=== PATIENT | male | born 1980 | race Caucasian/White ===

== ENCOUNTER 2020-11-07 12:22 | Inpatient (IN) | payer OTHER ==
[2020-11-07] VITALS (38 sets, daily range): BP systolic 80–115; BP diastolic 43–70
[~2020-11-07] VITALS: Ht 182.9 cm; Wt 99.8 kg
--- NOTE | 2020-11-07 12:22 | NUR ---
PT BIBRA FROM HOME C/O SOB FOR 2 WEEKS. PT IS AAOX3, NOTED RESPIRATORY DISTRESS, HOOKED TO O2 VIA NON RB AT 15LPM AND WIRELESS CONSULTANT, KEPT RESTED AND COMFORTABLE. WILL CONTINUE TO MONITOR.
--- NOTE | 2020-11-07 12:41 | NUR ---
RT AT BEDSIDE FOR ABG.
--- NOTE | 2020-11-07 12:45 | NUR ---
BLOOD DRAW AND SENT TO LAB.
--- NOTE | 2020-11-07 12:50 | NUR ---
MANAGER AGRICULTURE AT BEDSIDE FOR XRAY.
[2020-11-07 12:59] LABS: BASOPHILS # (AUTO) 0.1 /CMM (0.0-0.2); BASOPHILS % (AUTO) 0.3 % (0.0-2.0); EOSINOPHILS % (AUTO) 3.8 % (0.0-6.0); HEMATOCRIT 38 % (39-51); HEMOGLOBIN 12.1 g/dL (13.5-17.5); LYMPHOCYTES # (AUTO) 1.4 /CMM (0.8-4.8); LYMPHOCYTES % (AUTO) 4.4 % (20.0-44.0); MEAN CORPUSCULAR HGB CONC 32 g/dl (31.0-36.0); MEAN CORPUSCULAR VOLUME 107 fL (80-96); MONOCYTES # (AUTO) 0.3 /CMM (0.1-1.30); MONOCYTES % (AUTO) 0.8 % (2.0-12.0); NEUTROPHILS # (AUTO) 28.8 /CMM (1.8-8.9); NEUTROPHILS % (AUTO) 90.7 % (43.0-81.0); PLATELET COUNT (AUTO) 236 /CMM (150-450); RED BLOOD CELL COUNT(AUTO) 3.53 MIL/uL (4.5-6.0)
[2020-11-07] MEDS ORDERED: IV NS 0.9% 1,000 ML BAG IV ONE ×2 (13:00→14:00)
--- NOTE | 2020-11-07 13:00 | NUR ---
CALLED RT AT BEDSIDE FOR VENT SET UP FOR INTUBATION.
[2020-11-07] MEDS ORDERED: DEXTROSE 50%-WATER 50 ML DISP.SYRIN ONE (13:01)
[2020-11-07 13:02] LABS: WHITE BLOOD COUNT (AUTO) 31.8 K/uL (4.3-11.0)
--- NOTE | 2020-11-07 13:02 | NUR ---
LAB CALLED WBC 31.8
--- NOTE | 2020-11-07 13:03 | NUR ---
D50 IVP GIVEN ORDERED BY .
--- NOTE | 2020-11-07 13:11 | NUR ---
ETOMIDATE 20 MG IVP AND ROCURONIUM 90MG IVP ORDERED BY .
--- NOTE | 2020-11-07 13:12 | NUR ---
INTUBATION DONE BY . ET SIZE 7.5 AND 23CM AT THE LIP. EQUAL BILATERAL BREATH SOUNDS.
[2020-11-07 13:17] LABS: ALANINE AMINOTRANSFERASE 313 U/L (12-78); ALCOHOL, BLOOD < 3 mg/dL (0-0); ALKALINE PHOSPHATASE 279 U/L (46-116); ASPARTATE AMINOTRANSFERASE 805 U/L (15-37); BILIRUBIN,DIRECT 0.6 mg/dL (0.0-0.2); BILIRUBIN,TOTAL 0.8 mg/dL (0.2-1.0); CALCIUM, SERUM 8.1 mg/dL (8.5-10.1); CHLORIDE 82 mmol/L (98-107); CREATININE 4.9 mg/dL (0.6-1.3); SERUM AMMONIA < 10 umol/L (11-32); UREA NITROGEN, BLOOD 30 mg/dL (7-18)
[2020-11-07 13:18] LABS: ACETAMINOPHEN < 2 ug/ml (10-30); GLUCOSE 50 mg/dL (74-106); SODIUM SERUM 120 mmol/L (136-145)
[2020-11-07 13:19] LABS: ALBUMIN 1.2 g/dL (3.4-5.0); CARBON DIOXIDE 8 mmol/L (21-32)
[2020-11-07] MEDS ORDERED: PROPOFOL 100 ML ONE (13:21)
[2020-11-07] MEDS ORDERED: VANCOMYCIN 1 GM in IV D5W 250 ML IV ONE (13:30)
[2020-11-07] MEDS ORDERED: PIPERACILLIN /TAZOBACTAM 3.375 G in IV D5W 50 ML IV ONE (13:30)
--- NOTE | 2020-11-07 13:30 | NUR ---
PROPOFOL DRIP STARTED TITRATE TO EFFECT ORDERED BY
--- NOTE | 2020-11-07 13:30 | NUR ---
[facility] CALLED TAX TECHNICIAN PAGED.
--- NOTE | 2020-11-07 13:41 | NUR ---
PT WHEELED TO CT SCAN VIA ACLS PROTOCOL.
[2020-11-07] MEDS ORDERED: ETOMIDATE 2 MG/ML VIAL IV ONE (14:00)
[2020-11-07] MEDS ORDERED: ROCURONIUM BROMIDE 100 MG/10 ML VIAL IV ONE (14:00)
[2020-11-07] MEDS ORDERED: PROPOFOL 100 ML IV PRN ×2 (14:00→16:00)
--- NOTE | 2020-11-07 14:10 | NUR ---
room [id number]
--- NOTE | 2020-11-07 14:16 | NUR ---
CALLED ICU FOR REPORT RN NOT AVAILABLE. WILL CALL BACK AFTER 10 MINS PER UNIT SEC.
[2020-11-07 14:28] LABS: ABG BASE EXCESS -19.6 mmol/L; ABG OXYGEN SATURATION 99.3 % (92.0-98.5); ABG PCO2 36.2 mmHg (35.0-45.0); ABG PH 7.054 (7.350-7.450); ABG PO2 337.9 mmHg (75.0-100.0); AaDO2 338.9 mmHg; COHb 0.3 % (0.5-1.5); MetHb 0.6 % (0.0-1.5); O2Hb 98.4 % (94.0-97.0); SITE, ABG Right Radial; VENT MODE, BG AC 22 500 +5 100%
[2020-11-07] MEDS ORDERED: DEXTROSE 50%-WATER 50 ML DISP.SYRIN IVP ONE (14:30)
--- NOTE | 2020-11-07 14:35 | NUR ---
CALLED HOUSE SUP FOR PICC
--- NOTE | 2020-11-07 14:37 | NUR ---
REPORT GIVEN TO YANIRA HAYES OF ICU FOR SETH.
--- NOTE | 2020-11-07 15:00 | NUR ---
ICU/RN PT ADMITTED FROM ER.INTUBATED ON THE VENT ,AC MODE,FIO2-100%.SAT O2-100%.SEDATED ON DIPRIVAN . F/C IN PLACE WITH MINIMAL AMOUNT OF URINE.SKIN INTACT.PALE ,MOTTLED AND DIAPHORETIC. AFEBRILE.ST-120 BPM ON MONITOR.LOW BP .LABS REVIEW.MD AWARE. OG TUBE PLACED AND SUCTIONING WITH GREEN GASTRIC SECRETION. PICC LINE ORDERED.
[2020-11-07 15:24] LABS: BAND % (MANUAL) 13 % (0.0-5.0); LYMPHOCYTES % (MANUAL) 7 % (16-48); MONOCYTES % (MANUAL) 1 % (0-11.0); MYELOCYTES % 6 % (0-0); NEUTROPHILS % (MANUAL) 73 (42-76)
[2020-11-07 16:23] LABS: BILIRUBIN,URINE SMALL (NEGATIVE); COLOR,URINE YELLOW (YELLOW); LEUKOCYTE ESTERASE ,URINE NEGATIVE (NEGATIVE); NITRITE, URINE NEGATIVE (NEGATIVE); PROTEIN,URINE >=300 mg/dl (NEGATIVE); UGLUCOSE NEGATIVE (NEGATIVE)
[2020-11-07] MEDS ORDERED: IV NS 0.9% 500 ML IV ONE (16:30)
[2020-11-07 16:39] LABS: RBC,URINE 21-50 /HPF (0-2)
[2020-11-07 16:40] LABS: BACTERIA,URINE 1+ /HPF (None Seen); SQUAMOUS EPITHELIAL CELL,UR 0-2 /HPF (None Seen); URINE AMORPHOUS URATE Moderate /HPF (None Seen)
[2020-11-07] MEDS: Sodium Bicarbonate 100 MEQ in IV D5/0.45 NACL 1,000 ML IV PRN (16:54)
[2020-11-07] MEDS: PHENYLEPHRINE 50 MG in IV NS 0.9% 245 ML IV PRN ×2 (16:54→22:26)
[2020-11-07] MEDS: PANTOPRAZOLE 40 MG VIAL IV SCH (17:25)
[2020-11-07] MEDS: IV NS 0.9% 500 ML IV PRN (17:26)
[2020-11-07] MEDS: Folic acid 1 MG in IV D5W 50 ML IV SCH (17:47)
[2020-11-07] MEDS: Thiamine 100 MG in IV D5W 50 ML IV SCH (17:47)
[2020-11-07] MEDS ORDERED: PIPERACILLIN /TAZOBACTAM 2.25 G in IV D5W 50 ML IV SCH (18:00)
[2020-11-07] MEDS ORDERED: VANCOMYCIN HCL 0.75 GM in IV D5W 250 ML IV ONE (18:00)
--- NOTE | 2020-11-07 18:00 | NUR ---
ICU/RN PT IS ON NORSYNEPHRINE NOW.SEDATED ON DIPRIVAN .PICC LINE INSERTED.ALL MEDS ARE GIVEN ORDERED.WAITING FOR THE CT ULTRASOUND GUIDED LIVER BIOPSY.NO URINE OUTPUT.MD AWARE.
--- NOTE | 2020-11-07 19:10 | NUR ---
RECEIVED PT ON BED INTUBATED WITH ETT 7.5/23CM VENT SETTING PER MD ORDER FIO2 80% WITH SPO2 100% PT IS ON PROPOFOL 35MCG/KG/MIN BUT STILL MOVING AND RR AT 39 BPM WILL TITRATE UP TO REACH SEDATION GOAL, TELE MONITOR READS SINUS TACHY 110'S PT HAVE KHANG PICC LINE PATENT AND FLUSHED WITH ONGOING ASHLEY @ 1MCG/KG/MIN AND D5 1/2 NS +100MEQ HCO3 @ 100ML/HR INFUSING WELL, PT ALSO HAVE LAC#18 AND RAC#18 PATENT AND FLUSHED, HAVE BILATERAL WRIST RESTRAINTS TO PREVENT SELF EXTUBATION CIRCULATION WILL CHECKED REGULARLY, BED ON LOWEST POSITION AND LOCKED SIDE RAILS UP X2 CALL LIGHT
--- NOTE | 2020-11-07 19:40 | NUR ---
RADIOLOGY CALL AND INFORMED US THAT THE DR WHO WILL DO THE CT GUIDED LIVER ABSCESS ASPIRATION IS ON HIS WAY, BRING PT TO THE CT SCAN ROOM VIA ACLS PROTOCOL WITH RT AND RN AT BEDSIDE, CONSENT FOR THE PROCEDURE ALSO SECURED, PT TOLERATED THE TRANSPORTED WILL CONT TO MONITOR
[2020-11-07] MEDS: PROPOFOL 100 ML IV PRN (20:30)
[2020-11-07] MEDS: PIPERACILLIN /TAZOBACTAM 2.25 G in IV D5W 50 ML IV SCH (20:56)
--- NOTE | 2020-11-07 20:59 | NUR ---
RT pt transported to ct and back for procedure. pt transported with ambu bag and vent. pt placed on vent with current settings. pt monitored and no complications during procedure. pt returned to room and placed back on vent. vent plugged in to red outlet. sat 100%. will continue to monitor pt.
--- NOTE | 2020-11-07 21:11 | NUR ---
RT pt received on mechanical vent with current settings. orally intubated, ett size 7.5 23@lip. vent plugged in to red outlet. ambu bag at [facility]. minimal secretions suctioned via ett. o2 titrated from 80% to 40%. pt tolerating well. sat 100%. will continue to monitor.
--- NOTE | 2020-11-07 22:00 | NUR ---
STARTED FPP TRANSFUSION WITH LATEST V/S 94/59 HR 103 RR 26 TEMP 98.5 WITH SPO2 99% NO SIGN OF SOB OF DISTRESS WILL CONT TO MONITOR
--- NOTE | 2020-11-07 22:18 | NUR ---
FFP TRANSFUSION STILL ONGOING NO SIGN OF DISTRESS NO SIGN OF TRANSFUSION REACTION NOTED V/S CHECKED AND RECORDED WILL CONT TO MONITOR
--- NOTE | 2020-11-07 23:00 | NUR ---
1ST UNIT OF FPP TRANSFUSION COMPLETED, NO SIGN OF RESPIRATORY DISTRESS AND TRANSFUSION REACTION NOTED V/S CHECKED AND RECORDED WILL CONT TO MONITOR THE PT, WILL TRANSFUSION THE SECOND UNIT ONCE AVAILABLE
[2020-11-08] VITALS (96 sets, daily range): BP systolic 71–132; BP diastolic 38–87
--- NOTE | 2020-11-08 00:15 | NUR ---
2ND UNIT OF FPP TRANSFUSED NO SIGN OF RESPIRATORY DISTRESS, NO TRANSFUSION REACTION NOTED V/S CHECKED AND RECORDED WILL CONT TO MONITOR
[2020-11-08] MEDS: PROPOFOL 100 ML IV PRN ×11 (00:31→23:41)
[2020-11-08] MEDS: PIPERACILLIN /TAZOBACTAM 2.25 G in IV D5W 50 ML IV SCH ×4 (01:42→19:59)
--- NOTE | 2020-11-08 01:56 | NUR ---
NOTIFY DR RBOERTS ABOUT THE BLOODY OUTPUT OF THE PT SANTACRUZ CATHETER WITH NO NEW ORDER
[2020-11-08] MEDS: PHENYLEPHRINE 50 MG in IV NS 0.9% 245 ML IV PRN ×2 (02:31→06:14)
[2020-11-08] MEDS: Sodium Bicarbonate 100 MEQ in IV D5/0.45 NACL 1,000 ML IV PRN (03:59)
[2020-11-08 04:42] LABS: BASOPHILS % (AUTO) 0.2 % (0.0-2.0); EOSINOPHILS % (AUTO) 3.6 % (0.0-6.0); HEMATOCRIT 31 % (39-51); HEMOGLOBIN 10.4 g/dL (13.5-17.5); LYMPHOCYTES # (AUTO) 1.1 /CMM (0.8-4.8); LYMPHOCYTES % (AUTO) 4.2 % (20.0-44.0); MEAN CORPUSCULAR HGB CONC 33 g/dl (31.0-36.0); MEAN CORPUSCULAR VOLUME 105 fL (80-96); MONOCYTES # (AUTO) 0.5 /CMM (0.1-1.30); MONOCYTES % (AUTO) 1.8 % (2.0-12.0); NEUTROPHILS # (AUTO) 23.7 /CMM (1.8-8.9); NEUTROPHILS % (AUTO) 90.2 % (43.0-81.0); PLATELET COUNT (AUTO) 70 /CMM (150-450); RED BLOOD CELL COUNT(AUTO) 2.95 MIL/uL (4.5-6.0); WHITE BLOOD COUNT (AUTO) 26.2 K/uL (4.3-11.0)
[2020-11-08 05:05] LABS: BILIRUBIN,TOTAL 1.2 mg/dL (0.2-1.0); CREATININE 4.5 mg/dL (0.6-1.3); MAGNESIUM 2.5 mg/dL (1.8-2.4); POTASSIUM 4.6 mmol/L (3.5-5.1); TOTAL PROTEIN, SERUM 5.6 g/dL (6.4-8.2)
[2020-11-08 05:09] LABS: CALCIUM, SERUM 5.4 mg/dL (8.5-10.1)
[2020-11-08 05:10] LABS: ALBUMIN 1.1 g/dL (3.4-5.0); PHOSPHORUS 10.3 mg/dL (2.5-4.9)
--- NOTE | 2020-11-08 05:45 | NUR ---
CRITICAL LAB VALUES OF CA 5.4 PHOS 10.3 Mg 2.5 AND LOW URUNE OUTPUT REPORTED TO DR ROBERTS WITH NO NEW ORDER
[2020-11-08] MEDS ORDERED: PHENYLEPHRINE 10 MG/ML VIAL ONE (06:06)
--- NOTE | 2020-11-08 06:15 | NUR ---
INFORMED DR ROBERTS THAT PT HAVE LOW BP OF 87/54 WITH ASHLEY AT MAX DOSE OF 3 MCG/KG/MIN WITH ORDER FOR LEVOPHED TO TITRATE PER PROTOCOL NOTED AND CARRIED OUT
[2020-11-08] MEDS: NOREPINEPHRINE 8 MG in IV NS 0.9% 242 ML IV PRN ×3 (06:48→20:45)
[2020-11-08 07:53] LABS: BAND % (MANUAL) 15 % (0.0-5.0); LYMPHOCYTES % (MANUAL) 8 % (16-48); MONOCYTES % (MANUAL) 1 % (0-11.0); MYELOCYTES % 5 % (0-0); NEUTROPHILS % (MANUAL) 71 (42-76)
--- NOTE | 2020-11-08 08:00 | NUR ---
RN NOTES RECEIVED PATIENT EET /VENT SETTING 7.5/23, AC-25, TV-500, FIO2-40, PEEP 5. PATIENT TOLERATING ETT SETTING WELL, NO ACUTE RESPIRATORY DISTRESS, T-102.2 F, INFUSING LEVOPHED 0.1 MCG/KG, ASHLEY 3 MCG/KG/HR, DIPRIVAN 65MCG/KG/HR, D51/2 NS WITH 2 AMPS OF BICARB @ 100 ML/HR ON LEFT PICC LINE INTACT. HAS DRAINAGE ON RIGHT LIVER LOBE WITH BROWN DISCHARGE, SANTACRUZ HAS NO OUTPUT. OGT INTACT WITH LOW SUCTION. CALL LIGHT WITHIN TO REACH, T-102.2F. WILL MONITORING.
[2020-11-08 08:09] LABS: BILIRUBIN,TOTAL 1.5 mg/dL (0.2-1.0); CREATININE 4.2 mg/dL (0.6-1.3); POTASSIUM 4.3 mmol/L (3.5-5.1)
--- NOTE | 2020-11-08 08:10 | NUR ---
RN NOTES GET CRITICAL LABS LACTIC ACID IS 3.7 FROM LAB, NOTIFIED HOSPITALIST Dr ROBERTS, AND GET TO ORDER STAT ABG, AND NOTIFY BACK TO THE HOSPITALIST. ALSO PATIENT HAS A FEVER 102.2 F ALSO GET ORDER TYLENOL SUPPOSITORY. ORDERS TAKEN AND CARRIED OUT.
[2020-11-08] MEDS ORDERED: ACETAMINOPHEN 650 MG/SUPP.RECT RC PRN (08:30)
[2020-11-08 08:42] LABS: ABG BASE EXCESS -5.8 mmol/L; ABG OXYGEN SATURATION 96.2 % (92.0-98.5); ABG PCO2 20.2 mmHg (35.0-45.0); ABG PH 7.485 (7.350-7.450); ABG PO2 79.7 mmHg (75.0-100.0); AaDO2 182.3 mmHg; COHb 0.2 % (0.5-1.5); MetHb 0.3 % (0.0-1.5); O2Hb 95.7 % (94.0-97.0); SITE, ABG Right Radial
[2020-11-08] MEDS ORDERED: IV NS 0.9% 1,000 ML IV ONE ×2 (09:00→10:00)
--- NOTE | 2020-11-08 09:00 | NUR ---
RN NOTES GET ORDER HOSPITALIST CHANGE AC 18, RT NOTIFIED.
--- NOTE | 2020-11-08 09:07 | NUR ---
rn notes administered rectal supp. T_102.2F. and running ns iv bolus x1 vis hospitalist order.
--- NOTE | 2020-11-08 09:09 | NUR ---
RT PER DR ROBERTS, RR LOWERED TO 18 ON [facility] VENT Addendum: 11/08/20 at 0910 by BRYON ANGELA RT Amended: Links added.
[2020-11-08] MEDS ORDERED: PHENYLEPHRINE 100 MG in IV NS 0.9% 240 ML IV PRN (09:30)
[2020-11-08] MEDS: PHENYLEPHRINE 100 MG in IV NS 0.9% 240 ML IV PRN ×3 (09:38→20:46)
[2020-11-08] MEDS: IV D5/ 0.9% NACL 1,000 ML IV PRN ×2 (09:39→19:59)
[2020-11-08 10:00] LABS: CALCIUM, SERUM 4.8 mg/dL (8.5-10.1)
--- NOTE | 2020-11-08 10:11 | NUR ---
RN NOTES GET CRITICAL LAB CA 4.8, AND ALBUMIN 1. NOTIFIED Dr ROBERTS, AND GET ORDER CA GLUCONATE 1G IV X1 ORDER TAKEN AND CARRIED OUT.
[2020-11-08] MEDS ORDERED: Calcium Gluconate 0.465 MEQ/ML VIAL IV ONE (10:30)
[2020-11-08 10:48] LABS: TOTAL PROTEIN, SERUM 5.1 g/dL (6.4-8.2)
[2020-11-08] MEDS ORDERED: Calcium Gluconate 1GM/10ML 4.65 MEQ in IV D5W 50 ML IV ONE (11:00)
--- NOTE | 2020-11-08 13:23 | NUR ---
rn notes Get consent form signed for us guided thoracentesis via name Nohemi. next to the bed. patient has covid vaccination on October regarding .
--- NOTE | 2020-11-08 13:31 | NUR ---
INR 1.77 TOO HIGH FOR THORACENTESIS PER DR. TOBIAS PT NEEDS TO BE GIVEN VIT. K AND CHECK FOR NEW LABS TOMORROW. YANIRA MARTINS WAS INFORMED
[2020-11-08 13:52] LABS: POTASSIUM 4.1 mmol/L (3.5-5.1)
[2020-11-08] MEDS ORDERED: PHYTONADIONE INJ 10 MG/1 ML AMPUL SQ ONE (14:00)
--- NOTE | 2020-11-08 14:00 | NUR ---
YANIRA GRIFFIN GET CALL FROM US TECH RADIOLOGIST UNABLE TO DO US GUIDED THORACENTESIS BECAUSE OF INR LEVEL IS HIGH. NOTIFIED Dr RAPP AND GET ORDER VIT K 5 MG SQ X1 ORDER TAKEN AND CARRIED OUT.
[2020-11-08 14:30] LABS: CREATININE 4.4 mg/dL (0.6-1.3)
[2020-11-08 14:31] LABS: CALCIUM, SERUM 4.7 mg/dL (8.5-10.1)
[2020-11-08] MEDS: PANTOPRAZOLE 40 MG VIAL IV SCH (17:12)
[2020-11-08] MEDS: Folic acid 1 MG in IV D5W 50 ML IV SCH (17:43)
--- NOTE | 2020-11-08 18:04 | NUR ---
RN NOTES NOTIFIED ABG RESULT TO THE Dr WATSON WATER ENGINEER.
[2020-11-08 18:08] LABS: ABG BASE EXCESS -8.3 mmol/L; ABG OXYGEN SATURATION 97.3 % (92.0-98.5); ABG PCO2 27.9 mmHg (35.0-45.0); ABG PH 7.368 (7.350-7.450); ABG PO2 99.9 mmHg (75.0-100.0); AaDO2 153.2 mmHg; COHb 0.3 % (0.5-1.5); MetHb 0.3 % (0.0-1.5); O2Hb 96.7 % (94.0-97.0)
[2020-11-08] MEDS: Thiamine 100 MG in IV D5W 50 ML IV SCH (18:14)
--- NOTE | 2020-11-08 18:45 | NUR ---
rn notes pm care done, suction , mouth care, due medication administered. Loaiza clamped for urine collection. infusing Levophed 0.1mcg/kg/hr, d5ns at 100 ml, sarah beth 3mcg/kg/hr, Diprivan 85mcg/kg/hr on left PICC line and TKO intact. Loaiza has 50 ml of bloody output, and right lever lobe drainage 50 ml. Assist turn and reposition q 2 hr. endorsed oncoming nurse follow plan of care.
--- NOTE | 2020-11-08 19:30 | NUR ---
BUSINESS DEVELOPER RCD PT W/DX SEPSIS. PT IS SEDATED ON PROPOFOL @ 85 MCG/KG/MIN. NSR ON MONITOR.INTUBTAED 7.5 @ 23 W/VENT SETTINGS AC 18 500 40% +5. OG TUBE TO LIS WITH GREEN DRAINAGE OUTPUT. PT IS NPO. SKIN INTACT HOWEVER THERE IS MOTTLING TO HEELS, KNEES, ELBOWS AND BACK. DANIEL PICC LINE PATENT WITH BLOOD RETURN D5NS @ 100ML/HR; ASHLEY @ 3 MCG/KG/MIN, LEVO 0.1 MCG/KG/MIN. NS @ TKO VIA LAC 18 IV. DRAINAGE CATHETER NOTED ON RIGHT SIDE OF ABD INTO ABSCESS CAVITY DRAINING LIQUID BROWN OUTPUT.
[2020-11-08] MEDS: IV NS 0.9% 500 ML IV PRN (19:59)
--- NOTE | 2020-11-08 19:59 | NUR ---
RCVD PT ORALLY INTUBATED WITH ETT 7.5 SECURED @ 23 CM LIP LINE ON VENT WITH THE SETTINGS OF AC 18, VT 500, FIO2 40% AND PEEP 5. PT IS SEDATED . EQUAL BILATERAL BREATH SOUNDS AND CHEST RISE NOTED. SUCTIONED SMALL AMOUNT OF WHITE THIN SECRETIONS . VENT PLUGGED INTO RED OUTLET. VENT ALARMS SET AND AUDIBLE. WILL CONTINUE TO MONITOR T/O SHIFT.
[2020-11-08] MEDS ORDERED: FUROSEMIDE 20 MG/2 ML VIAL IV ONE (22:30)
[2020-11-09] VITALS (102 sets, daily range): BP systolic 87–125; BP diastolic 45–72
--- NOTE | 2020-11-09 | NUR ---
NOCTURNIST PHYSICIAN PT VERY SEDATED DIPRIVAN DECREASED TO 80 MCG/KG/MIN PER PROTOCOL.
[2020-11-09] MEDS: PIPERACILLIN /TAZOBACTAM 2.25 G in IV D5W 50 ML IV SCH ×4 (01:30→20:30)
--- NOTE | 2020-11-09 01:30 | NUR ---
EQUIPMENT OPERAT0R PT VERY SEDATED DIPRIVAN DECREASED TO 75 MCG/KG/MIN PER PROTOCOL.
[2020-11-09] MEDS: PHENYLEPHRINE 100 MG in IV NS 0.9% 240 ML IV PRN ×4 (01:51→20:45)
[2020-11-09] MEDS: PROPOFOL 100 ML IV PRN ×10 (01:51→22:40)
--- NOTE | 2020-11-09 03:30 | NUR ---
NUMERICAL CONTROL TOOL PROGRAMMER PT VERY SEDATED DIPRIVAN DECREASED TO 70 MCG/KG/MIN PER PROTOCOL.
[2020-11-09 04:44] LABS: BASOPHILS # (AUTO) 0.1 /CMM (0.0-0.2); BASOPHILS % (AUTO) 0.5 % (0.0-2.0); HEMATOCRIT 31 % (39-51); LYMPHOCYTES # (AUTO) 1.1 /CMM (0.8-4.8); LYMPHOCYTES % (AUTO) 5.4 % (20.0-44.0); MEAN CORPUSCULAR HGB CONC 36 g/dl (31.0-36.0); MEAN CORPUSCULAR VOLUME 105 fL (80-96); MONOCYTES # (AUTO) 0.4 /CMM (0.1-1.30); NEUTROPHILS # (AUTO) 18.5 /CMM (1.8-8.9); NEUTROPHILS % (AUTO) 91.1 % (43.0-81.0); RED BLOOD CELL COUNT(AUTO) 2.93 MIL/uL (4.5-6.0); WHITE BLOOD COUNT (AUTO) 20.3 K/uL (4.3-11.0)
[2020-11-09 04:59] LABS: PLATELET COUNT (AUTO) 33 /CMM (150-450)
--- NOTE | 2020-11-09 06:09 | NUR ---
RETORT LOAD EXPEDITER DR ROBERTS MADE AWARE OF PLATELETS 33 NO URINE OUTPUT.
[2020-11-09] MEDS: IV D5/ 0.9% NACL 1,000 ML IV PRN (06:15)
[2020-11-09 06:24] LABS: BILIRUBIN,TOTAL 2.2 mg/dL (0.2-1.0); CREATININE 5.4 mg/dL (0.6-1.3); MAGNESIUM 2.5 mg/dL (1.8-2.4); POTASSIUM 4.6 mmol/L (3.5-5.1); THYROID STIMULATING HORMONE 1.051 uIU/mL (0.358-3.74); TOTAL PROTEIN, SERUM 5.2 g/dL (6.4-8.2); URIC ACID 12.5 mg/dL (2.6-7.2)
[2020-11-09 06:28] LABS: CALCIUM, SERUM 5.2 mg/dL (8.5-10.1); PHOSPHORUS 8.4 mg/dL (2.5-4.9)
[2020-11-09 06:29] LABS: ALBUMIN 0.9 g/dL (3.4-5.0)
--- NOTE | 2020-11-09 06:30 | NUR ---
POOL TABLE OPERATOR PT VERY SEDATED DIPRIVAN DECREASED TO 65 MCG/KG/MIN PER PROTOCOL.
--- NOTE | 2020-11-09 06:45 | NUR ---
LEATHER ROLLER PT NOTED TO BE TACHYPNEIC; DIPRIVAN INCREASED TO 70 MCG/KG/MIN PER PROTOCOL.
--- NOTE | 2020-11-09 08:00 | NUR ---
RN NOTES large right pleural effusion with associated compressive atelectasis as well as fluid within the interlobar fissures. 2. Partially imaged large hypoattenuating lesion in the right lobe of the liver measures 7.3 cm. PATIENT TOLERATING ETT SETTING WELL, ABG TAKEN VIA RT, T-99.5 AXILLARY.SUCTION, MAKE PATIENT COMFORTABLE. PATIENT SEDATED DIPRIVAN 70MCG/KG/HR, LEVOPHED 0.1MCG/KG/HR, ASHLEY-3 MCG/KG/HR, D5NS @ 100 ML/HR , AND TKO ON LEFT PICC LINE INTACT. RIGHT SIDE LIVER LOBE DRAINAGE, SANTACRUZ HAS BLOODY OUTPUT. ASSIST PATIENT TURN AND REPOSTION Q 2 HR.
[2020-11-09 08:07] LABS: ABG OXYGEN SATURATION 98.4 % (92.0-98.5); ABG PCO2 28.6 mmHg (35.0-45.0); ABG PH 7.348 (7.350-7.450); ABG PO2 130.2 mmHg (75.0-100.0); AaDO2 122.1 mmHg; COHb 0.3 % (0.5-1.5); MetHb 0.6 % (0.0-1.5); O2Hb 97.5 % (94.0-97.0); SITE, ABG Right Radial
--- NOTE | 2020-11-09 09:00 | NUR ---
RN NOTES GET CALL FROM US TECH RADIOLOGIST UNABLE TO DO US GUIDED THORACENTESIS BECAUSE OF PATELLATE IS LOW. SEEN PATIENT VIA HOSPITALIST AND GEY ORDER ONE PLATELET, 2 FFP , CHECK INR, AND PATELLATE AFTER ONE HR. ORDER TAKEN AND CARRIED OUT.
[2020-11-09 09:06] LABS: BAND % (MANUAL) 8 % (0.0-5.0); LYMPHOCYTES % (MANUAL) 4 % (16-48); METAMYELOCYTES % 1 % (0-0); MONOCYTES % (MANUAL) 2 % (0-11.0); MYELOCYTES % 1 % (0-0); NEUTROPHILS % (MANUAL) 84 (42-76)
[2020-11-09] MEDS ORDERED: FUROSEMIDE 20 MG/2 ML VIAL IV ONE (09:30)
[2020-11-09] MEDS: NOREPINEPHRINE 8 MG in IV NS 0.9% 242 ML IV PRN (09:32)
--- NOTE | 2020-11-09 11:32 | NUR ---
rn notes UA specimen collected from catheter port, called lab sheepskin pickler.
--- NOTE | 2020-11-09 12:29 | NUR ---
CALLED YANIRA HUBER 4 TIMES NO ANSWER, PER CHARGE NURSE IRON NO PLASMA GIVEN TO THE PATIENT AT THIS TIME, THORACENTESIS PENDING
--- NOTE | 2020-11-09 12:45 | NUR ---
RN NOTES ADMINISTERED FFP AT THIS TIME ONE UNIT ON LEFT PICC LINE .PATIENT SEDATED ETT /VENT SETTING, T-98.7, P-88, R-23, BP 106/64, O2-100. NO ACUTE RESPIRATORY DISTRESS. WILL MONITORING.
--- NOTE | 2020-11-09 13:12 | NUR ---
RN NOTES SEEN FLEECE TIER Dr MARTÍNEZ AND GET ORDER STAT ABG, ACCORDING ON ABG RESULT MD CHANGED 1/2 NS WITH BICARB 75 MEQ, ORDER TAKEN AND CARRIED OUT.
[2020-11-09 13:15] LABS: ABG BASE EXCESS -9.3 mmol/L; ABG OXYGEN SATURATION 98.5 % (92.0-98.5); ABG PCO2 32.5 mmHg (35.0-45.0); ABG PH 7.308 (7.350-7.450); ABG PO2 134.5 mmHg (75.0-100.0); AaDO2 113.3 mmHg; COHb 0.3 % (0.5-1.5); MetHb 0.4 % (0.0-1.5); O2Hb 97.8 % (94.0-97.0); SITE, ABG Right Radial
--- NOTE | 2020-11-09 13:30 | NUR ---
RN NOTES PATIENT HAS NO ACUTE REPARATORY DISTRESS. VS TAKEN BP-111/60, P-85 R-23, T-99. INCREASED FFP INFUSION @150ML/HR WILL MONITORING.
[2020-11-09] MEDS: Sodium Bicarbonate 75 MEQ in IV 1/2NS 1000 ML 1,000 ML IV PRN (13:59)
[2020-11-09] MEDS ORDERED: VANCOMYCIN 1 GM in IV D5W 250ml IV SCH (14:00)
--- NOTE | 2020-11-09 14:50 | NUR ---
AT THIS TIME STILL NO PLATELESTS, WILL FOLLOW UP LATER
--- NOTE | 2020-11-09 15:00 | NUR ---
RN NOTES FINISHED FIRST UNITS OF FFP TRANSFUSION AT THIS TIME, VSS, T-99. P-81, BP-111/63, R-22, PATIENT TOLERATED INFUSION WELL. WILL MONITORING.
--- NOTE | 2020-11-09 15:19 | NUR ---
RN NOTES STARTED SECOND FFP INFUSION AT THIS TIME 60 ML/HR, T-97.9, P-76, R-22, BP 108/85. PATIENT HAS NO ACUTE RESPIRATORY DISTRESS. WILL MONITORING
--- NOTE | 2020-11-09 15:40 | NUR ---
RN NOTES PATIENT TOLERATING FFP INFUSION WELL, BP 106/59, P-76, R-21, -98 F, NO ACUTE RESPIRATORY DISTRESS, INCREASED INFUSION 200 ML/HR WILL MONITORING.
--- NOTE | 2020-11-09 15:51 | NUR ---
Platelet count still too low for Thoracentesis procedure to be done today. Per radiologist, will be done tomorrow morning pending higher plat count and lower INR (< 1.5)
--- NOTE | 2020-11-09 17:09 | NUR ---
rn notes finished second FFP transfusion at this time, patient stable, no acute respiratory ditress, t-99. p-75, r-21,hr-75, bp 113/65. according radiologist platelet not received yet will be given tomorrow. hospitalist Dr Yu notified. also notified lab blood bank.
[2020-11-09] MEDS: Folic acid 1 MG in IV D5W 50 ML IV SCH (17:30)
[2020-11-09] MEDS: PANTOPRAZOLE 40 MG VIAL IV SCH (17:30)
[2020-11-09] MEDS: Thiamine 100 MG in IV D5W 50 ML IV SCH (18:10)
--- NOTE | 2020-11-09 18:49 | NUR ---
RN NOTES PATIENT PM CARE DONE, SUCTION, MOUTH CARE, BSS-90/50, INFUSING ASHLEY 3 MCG/KG/HR, DIPRIVAN 75 MCG/KG/HR, 1/2 NS +BICARB 75MEQ @100 ML/HR, AND TKO @10ML/HR. ASSIST TURN AND REPOSTION Q 2 HR, RECHECKED RESTRAIN AND GOOD CIRCULATION, OGT LOW SUCTION. SANTACRUZ DRAINING BLOODY OUTPUT. LIVER DRAINAGE INTACT. NEXT TO THE BED. ENDORSED ONCOMING NURSE SETH.
--- NOTE | 2020-11-09 19:45 | NUR ---
ASSOCIATE ARTISTIC DIRECTOR LEVOPHED RESTARTED AT 0.1 MCG/KG/MIN FOR BP 89/50.
[2020-11-09] MEDS: IV NS 0.9% 500 ML IV PRN (20:45)
[2020-11-10] VITALS (95 sets, daily range): BP systolic 87–130; BP diastolic 43–102
[2020-11-10] MEDS: Sodium Bicarbonate 75 MEQ in IV 1/2NS 1000 ML 1,000 ML IV PRN (00:50)
[2020-11-10] MEDS: PROPOFOL 100 ML IV PRN ×6 (01:01→18:41)
[2020-11-10] MEDS: PIPERACILLIN /TAZOBACTAM 2.25 G in IV D5W 50 ML IV SCH ×4 (01:30→20:30)
[2020-11-10] MEDS: PHENYLEPHRINE 100 MG in IV NS 0.9% 240 ML IV PRN ×4 (01:31→19:46)
[2020-11-10] MEDS: NOREPINEPHRINE 8 MG in IV NS 0.9% 242 ML IV PRN ×2 (01:31→14:08)
[2020-11-10 04:26] LABS: BASOPHILS # (AUTO) 0.1 /CMM (0.0-0.2); BASOPHILS % (AUTO) 0.3 % (0.0-2.0); EOSINOPHILS % (AUTO) 1.5 % (0.0-6.0); HEMATOCRIT 29 % (39-51); LYMPHOCYTES # (AUTO) 1.1 /CMM (0.8-4.8); LYMPHOCYTES % (AUTO) 4.3 % (20.0-44.0); MEAN CORPUSCULAR HGB CONC 34 g/dl (31.0-36.0); MEAN CORPUSCULAR VOLUME 105 fL (80-96); MONOCYTES # (AUTO) 0.7 /CMM (0.1-1.30); MONOCYTES % (AUTO) 2.7 % (2.0-12.0); NEUTROPHILS # (AUTO) 22.3 /CMM (1.8-8.9); NEUTROPHILS % (AUTO) 91.2 % (43.0-81.0); RED BLOOD CELL COUNT(AUTO) 2.82 MIL/uL (4.5-6.0); WHITE BLOOD COUNT (AUTO) 24.4 K/uL (4.3-11.0)
[2020-11-10 04:32] LABS: PLATELET COUNT (AUTO) 24 /CMM (150-450)
[2020-11-10 04:53] LABS: BILIRUBIN,TOTAL 3.1 mg/dL (0.2-1.0); CREATININE 6.2 mg/dL (0.6-1.3); POTASSIUM 5.1 mmol/L (3.5-5.1); TOTAL PROTEIN, SERUM 5.3 g/dL (6.4-8.2)
[2020-11-10 05:07] LABS: CALCIUM, SERUM 4.9 mg/dL (8.5-10.1)
--- NOTE | 2020-11-10 07:30 | NUR ---
ICU/RN PT IS INTUBATED ON THE VENT AC MODE,FIO2-40%,SAT O2-97%. SEDATED ON DIPRIVAN.ON LEVOPHED AND NEOSYNEPHRINE DRIPS,ON BICARB DRIP,LEFT UPPER ARM PICC LINE.OG TUBE CONNECTED LOW INTERMEDIATE SUCTION WITH GREEN GASTRIC SECRETION.F/C IN PLACE WITH NO URINE OUTPUT.GENERALIZED EDEMA PRESENT.PT POST LIVER DRAINAGE ABSCESS HAS BAG WITH BROWN OUTPUT.BILATERAL WRIST RESTRAINS ON.LABS REVIEW.MD NOTIFIED.SUCTION PROVIDED.REPOSITION FOR COMFORT.
[2020-11-10 08:10] LABS: ABG BASE EXCESS -8.7 mmol/L; ABG PCO2 31.5 mmHg (35.0-45.0); ABG PH 7.328 (7.350-7.450); ABG PO2 113.6 mmHg (75.0-100.0); AaDO2 135.4 mmHg; COHb 0.3 % (0.5-1.5); MetHb 0.5 % (0.0-1.5); O2Hb 97.2 % (94.0-97.0); SITE, ABG Right Radial
--- NOTE | 2020-11-10 09:00 | NUR ---
ICU/RN DUE MEDS ARE GIVEN ORDERED. 1 UNIT OF PLATELETS ARE GIVEN ORDERED.
--- NOTE | 2020-11-10 12:00 | NUR ---
ICU/RN RIGHT LUNG THORACENTESIS DONE .1090 ML OUTPUT.PT TOLERATED PROCEDURE WELL. FLUIDS SANDED TO THE LAB.
[2020-11-10] MEDS: Sodium Bicarbonate 75 MEQ in IV 1/2NS 1000 ML 1,000 ML IV SCH ×2 (12:55→23:00)
--- NOTE | 2020-11-10 14:00 | NUR ---
ICU/RN SEDATION VACATION PROVIDED.PT OPEN HIS EYES,FOLLOWS SIMPLE COMMAND . REACTIVE ON PAIN STIMULATIONS VERY WEAK ,DOES NOT MOVES HIS EXTREMITIES. GENERALIZED EDEMA PRESENT.WAITING FOR HD CATH PLACEMENT AND HD. FAMILY NOTIFIED AND AGREE WITH TREATMENTS.CONSENTS SIGN.SUCTION PROVIDED.REPOSITION FOR COMFORT.
[2020-11-10] MEDS: Thiamine 100 MG in IV D5W 50 ML IV SCH (17:44)
[2020-11-10] MEDS: Folic acid 1 MG in IV D5W 50 ML IV SCH (17:45)
[2020-11-10] MEDS: HYDROCORTISONE SOD SUCCINATE 100 MG/2 ML VIAL IV SCH ×2 (17:53→20:27)
[2020-11-10] MEDS: PANTOPRAZOLE 40 MG VIAL IV SCH (17:53)
--- NOTE | 2020-11-10 19:30 | NUR ---
PIG MACHINE OPERATOR OPENING NOTES: Rec'd pt in bed, sedated and intubated 7.5/23cm at the lip. Tolerating vent settings well. No resp distress noted at this time. SR on tele monitor. OGT in place, connected to low intermittent suction. NPO dx. KHANG PICC in place patent and flushed w/ 1/2NS w/ 3 amps of Bicarb infusing at 100ml/hr, Levo at 0.1mcg/kg/min, Tone at 3mcg/kg/min and Diprivan at 30mcg/kg. Will titrate pressors as tolerated. Loaiza catheter in place patent and draining urine via gravity. Safety measures in place. Will continue to monitor.
--- NOTE | 2020-11-10 22:20 | NUR ---
MIDDLE SCHOOL SPORTS COACH NOTE: BP: 124/73 titrate Levo off as ordered. Will continue to monitor BP closely.
[2020-11-11] VITALS (96 sets, daily range): BP systolic 105–140; BP diastolic 56–94
[2020-11-11] MEDS: PROPOFOL 100 ML IV PRN ×4 (00:30→18:17)
[2020-11-11] MEDS: PHENYLEPHRINE 100 MG in IV NS 0.9% 240 ML IV PRN ×2 (01:41→11:54)
[2020-11-11] MEDS: PIPERACILLIN /TAZOBACTAM 2.25 G in IV D5W 50 ML IV SCH (01:48)
[2020-11-11 04:31] LABS: BILIRUBIN,DIRECT 3.4 mg/dL (0.0-0.2); BILIRUBIN,TOTAL 3.8 mg/dL (0.2-1.0); CREATININE 6.9 mg/dL (0.6-1.3); POTASSIUM 5.8 mmol/L (3.5-5.1); TOTAL PROTEIN, SERUM 5.3 g/dL (6.4-8.2)
[2020-11-11 04:59] LABS: ALBUMIN 0.9 g/dL (3.4-5.0)
[2020-11-11] MEDS: HYDROCORTISONE SOD SUCCINATE 100 MG/2 ML VIAL IV SCH ×3 (05:01→21:00)
[2020-11-11 05:02] LABS: CALCIUM, SERUM 4.7 mg/dL (8.5-10.1)
--- NOTE | 2020-11-11 06:01 | NUR ---
HEAVY EQUIPMENT ENGINE MECHANIC NOTE: Rec'd critical lab values Ca: 4.7 and Albumin 0.9. Paged chocolate production machine operator MD Dr. Garcia w/ order for nutritional follow up. Noted.
--- NOTE | 2020-11-11 07:35 | NUR ---
ICU/RN PT IS INTUBATED ON THE VENT AC MODE,FIO2-40%,SAT O2-100%.SEDATED ON DIPRIVAN.ON NEOSYNEPHRINE DRIP.AND BICARB DRIP.OG TUBE CONNECTED TO SUCTION NO OUTPUT.F/C IN PLACE WITH NO URINE OUTPUT.GENERALIZED EDEMA PRESENT.LABS REVIEW MD NOTIFIED.SUCTION PROVIDED.REPOSITION FOR COMFORT.
[2020-11-11] MEDS: CEFTRIAXONE 2 G in IV D5W 100 ML IV SCH (08:23)
[2020-11-11 08:33] LABS: ABG PCO2 29.8 mmHg (35.0-45.0); ABG PH 7.337 (7.350-7.450); ABG PO2 110.6 mmHg (75.0-100.0); AaDO2 140.3 mmHg; COHb 0.3 % (0.5-1.5); MetHb 0.2 % (0.0-1.5); O2Hb 97.5 % (94.0-97.0); PEEP,BG 5 cm H2O; SITE, ABG Right Radial; VT, ABG 500 mL
--- NOTE | 2020-11-11 08:37 | NUR ---
STAS LUCIA Addendum: 11/11/20 at 0838 by LOULOU LEVINE RT Amended: Links added.
[2020-11-11] MEDS: IV NS 0.9% 500 ML IV PRN (08:59)
[2020-11-11] MEDS ORDERED: SODIUM BICARBONATE SYR 50 MEQ/50 ML DISP.SYRIN IV ONE (09:00)
[2020-11-11] MEDS ORDERED: DEXTROSE 50%-WATER 50 ML DISP.SYRIN IVP ONE (09:00)
[2020-11-11] MEDS ORDERED: INSULIN REGULAR, HUMAN 100 UNIT/ML 10 ML VIAL IV ONE (09:00)
[2020-11-11] MEDS ORDERED: Calcium Gluconate 1GM/10ML 4.65 MEQ in IV D5W 50 ML IV ONE (09:30)
--- NOTE | 2020-11-11 09:30 | NUR ---
ICU/RN SEDATION VACATION PROVIDED.PT OPEN HIS EYES,FOLLOWS COMMAND.VERY WEAK,TACHYPNEA.DIPRIVAN RESTARTED.CONTINUE MONITORING
[2020-11-11] MEDS: Sodium Bicarbonate 75 MEQ in IV 1/2NS 1000 ML 1,000 ML IV SCH ×2 (11:47→21:00)
[2020-11-11] MEDS: METRONIDAZOLE 500MG/ NS 100ML 500 MG in PREMIX 1 EA IV SCH ×3 (11:55→23:36)
[2020-11-11] MEDS ORDERED: ALBUMIN 25% 25 GM in PREMIX 1 EA IV PRN (12:00)
--- NOTE | 2020-11-11 12:00 | NUR ---
ICU/RN NEW RIGHT FEMORAL HD CATH INSERTED ORDERED,PT TOLERATED PROCEDURE WELL,
[2020-11-11] MEDS: PROSOURCE / PROSTAT (PYXIS) 30 ML UDC GT SCH ×2 (12:08→16:50)
[2020-11-11] MEDS ORDERED: NEPRO 1,000 ML BOTTLE GT PRN (12:30)
[2020-11-11] MEDS: PANTOPRAZOLE 40 MG VIAL IV SCH (17:00)
--- NOTE | 2020-11-11 18:02 | NUR ---
ICU/RN PM CARE PROVIDED.DUE MEDS ARE GIVEN ORDERED.HEMODIALYSIS STARTED.HD NURSE AT BEDSIDE.
[2020-11-11] MEDS: Folic acid 1 MG in IV D5W 50 ML IV SCH (18:17)
[2020-11-11] MEDS: Thiamine 100 MG in IV D5W 50 ML IV SCH (18:17)
--- NOTE | 2020-11-11 19:34 | NUR ---
AIR HOSE COUPLER OPENING NOTES: Rec'd pt in bed, sedated and intubated 7.5/23cm at the lip. Tolerating vent settings well. No resp distress noted at this time. SR on tele monitor. OGT in place, w/ Nepro infusing at 20ml/hr. Tolerating well. No residuals noted. KHANG PICC in place patent and flushed w/ 1/2NS w/ 3 amps of Bicarb infusing at 100ml/hr, Tone at 1mcg/kg/min and Diprivan at 20mcg/kg. Will titrate pressors as tolerated. Right femoral HD cath in place, receiving dialysis at this time. astronomy instructor at bedside, pt tolerating well. Loaiza catheter in place patent and draining urine via gravity. Safety measures in place. Will continue to monitor. Addendum: 11/11/20 at 1952 by SUDHIR JIMENES RN Has drainage catheter on right abdomen draining brown output.
--- NOTE | 2020-11-11 19:55 | NUR ---
STAGE SETTING PAINTER APPRENTICE NOTE: Dialysis complete. 2,500ml out.
[2020-11-12] VITALS (88 sets, daily range): BP systolic 107–156; BP diastolic 39–109
[2020-11-12] MEDS: PROPOFOL 100 ML IV PRN ×6 (01:27→23:50)
--- NOTE | 2020-11-12 02:00 | NUR ---
INDUSTRIAL GARAGE SERVICER NOTE: 0130: Pt awake, fighting vent and attempting to reach for tubes. Increased Diprivan by 5mcg/kg as per protocol. 0135: Pt awake and fighting vent. Increase Diprivan per protocol. 0140: Pt awake, following commands but still fighting vent. Increase by 5mcg/kg as Diprivan per protocol. 0145: Pt awake, following commands but still fighting vent. Increase Diprivan by 5mcg/kg as per protocol. Diprivan now infusing at 40mcg/kg/min. Will continue to monitor and titrate accordingly.
--- NOTE | 2020-11-12 02:30 | NUR ---
DORMITORY COUNSELOR NOTE: Pt's BP 117/68, HR 86. Titrated Tone off. Will continue to monitor and resume if necessary.
--- NOTE | 2020-11-12 02:45 | NUR ---
WORK ADJUSTMENT INSTRUCTOR NOTE: Pt noted w/ rapid respirations in the 30s. Increased Diprivan to 45mcg/kg/min. Will continue to monitor.
[2020-11-12 04:42] LABS: BASOPHILS % (AUTO) 0.2 % (0.0-2.0); EOSINOPHILS % (AUTO) 0.1 % (0.0-6.0); HEMATOCRIT 29 % (39-51); LYMPHOCYTES # (AUTO) 1.3 /CMM (0.8-4.8); LYMPHOCYTES % (AUTO) 6.2 % (20.0-44.0); MEAN CORPUSCULAR HGB CONC 35 g/dl (31.0-36.0); MEAN CORPUSCULAR VOLUME 102 fL (80-96); MONOCYTES # (AUTO) 0.6 /CMM (0.1-1.30); MONOCYTES % (AUTO) 2.9 % (2.0-12.0); NEUTROPHILS # (AUTO) 19.6 /CMM (1.8-8.9); NEUTROPHILS % (AUTO) 90.6 % (43.0-81.0); PLATELET COUNT (AUTO) 87 /CMM (150-450); RED BLOOD CELL COUNT(AUTO) 2.83 MIL/uL (4.5-6.0); WHITE BLOOD COUNT (AUTO) 21.6 K/uL (4.3-11.0)
[2020-11-12 04:57] LABS: BILIRUBIN,TOTAL 4.3 mg/dL (0.2-1.0); CREATININE 6.2 mg/dL (0.6-1.3); POTASSIUM 4.7 mmol/L (3.5-5.1); TOTAL PROTEIN, SERUM 5.5 g/dL (6.4-8.2)
[2020-11-12] MEDS: HYDROCORTISONE SOD SUCCINATE 100 MG/2 ML VIAL IV SCH ×3 (05:19→17:40)
[2020-11-12] MEDS: METRONIDAZOLE 500MG/ NS 100ML 500 MG in PREMIX 1 EA IV SCH ×4 (05:20→23:50)
[2020-11-12 05:45] LABS: ALBUMIN 1.3 g/dL (3.4-5.0)
[2020-11-12 06:02] LABS: BAND % (MANUAL) 2 % (0.0-5.0); LYMPHOCYTES % (MANUAL) 3 % (16-48); METAMYELOCYTES % 2 % (0-0); MONOCYTES % (MANUAL) 2 % (0-11.0); MYELOCYTES % 1 % (0-0); NEUTROPHILS % (MANUAL) 90 (42-76)
--- NOTE | 2020-11-12 06:17 | NUR ---
OIL TANKER CAPTAIN NOTE: Rec'd call from Micah from lab w/ critical labs. Ca: 6.0 and Albumin: 1.3. Paged Dr. Yu, GINGERO at this time. Noted.
[2020-11-12] MEDS: Sodium Bicarbonate 75 MEQ in IV 1/2NS 1000 ML 1,000 ML IV SCH (07:39)
[2020-11-12] MEDS: CEFTRIAXONE 2 G in IV D5W 100 ML IV SCH (08:12)
[2020-11-12] MEDS: PROSOURCE / PROSTAT (PYXIS) 30 ML UDC GT SCH ×3 (08:14→17:41)
[2020-11-12] MEDS: IV D5/ 0.9% NACL 1,000 ML IV PRN ×2 (08:59→22:15)
--- NOTE | 2020-11-12 10:42 | NUR ---
RN NOTE 0715: Received patient with ETT to vent, tolerated settings, no respiratory distress noted. KHANG PICC intact, on Diprivan @ 45, Bicarb drip infusing as ordered. OGT intact, TF tolerated, no residuals. Kept HOB elevated. With RUQ drain intact, noted with brownish pus drainage. 0830: S/E by Dr. Yu, to F/U with pulmo re: extubation. 0900: S/E by Dr. Khoury, with order to turn off Diprivan and wake up patient for SIMV trial and ABG 1hr after. 0925: Patient is awake, able to answer yes/no questions. RT placed him on SIMV 4 50% +5. 1030: S/E by Nephro with order for HD today, made patient aware.
[2020-11-12 10:57] LABS: ABG BASE EXCESS -2.7 mmol/L; ABG OXYGEN SATURATION 96.9 % (92.0-98.5); ABG PCO2 31.7 mmHg (35.0-45.0); ABG PH 7.436 (7.350-7.450); ABG PO2 93.7 mmHg (75.0-100.0); COHb 0.3 % (0.5-1.5); MetHb 0.2 % (0.0-1.5); O2Hb 96.4 % (94.0-97.0); PEEP,BG 5 cm H2O; SITE, ABG Right Radial
[2020-11-12] MEDS ORDERED: IV NS 0.9% 250 ML IV PRN (13:00)
--- NOTE | 2020-11-12 16:34 | NUR ---
placed back to ac mode due to 33 respiration, 183 heart rate and 84% saturation. Addendum: 11/12/20 at 1635 by LOULOU LEVINE RT Amended: Links added.
--- NOTE | 2020-11-12 16:53 | NUR ---
RN NOTE 1630: 2 hours in HD, noted patient on SVT >180's and increased WOB. Discontinued HD by HD nurse, made Dr. Khoury and Dr. Yu aware. Placed back on AC mode and placed on sedation. After 5 min, back to ST 100's. Obtained order from Dr. Khoury SIMV tomorrow 0600 and ABG 0730.
[2020-11-12] MEDS: PANTOPRAZOLE 40 MG VIAL IV SCH (18:07)
[2020-11-12] MEDS: Folic acid 1 MG in IV D5W 50 ML IV SCH (18:24)
[2020-11-12] MEDS: Thiamine 100 MG in IV D5W 50 ML IV SCH (18:24)
--- NOTE | 2020-11-12 19:27 | NUR ---
INSPECTOR BULLET SLUGS OPENING NOTES: Rec'd pt in bed, sedated and intubated 7.5/23cm at the lip. Tolerating vent settings well. No resp distress noted at this time. SR on tele monitor. OGT in place, w/ Nepro infusing at 20ml/hr. Tolerating well. No residuals noted at this time. KHANG PICC in place patent and flushed w/ D5NS infusing at 75ml/hr and Diprivan infusing at 45mcg/kg. Right femoral HD cath in place. Drainage catheter on right abdomen w/ brown output noted. Loaiza catheter in place patent and draining urine via gravity. Safety measures in place. Will continue to monitor.
[2020-11-13] VITALS (22 sets, daily range): BP systolic 122–150; BP diastolic 74–98
[2020-11-13] MEDS: PROPOFOL 100 ML IV PRN (04:10)
[2020-11-13 04:25] LABS: BASOPHILS # (AUTO) 0.1 /CMM (0.0-0.2); BASOPHILS % (AUTO) 0.2 % (0.0-2.0); EOSINOPHILS % (AUTO) 0.1 % (0.0-6.0); HEMATOCRIT 28 % (39-51); HEMOGLOBIN 9.6 g/dL (13.5-17.5); LYMPHOCYTES # (AUTO) 1.3 /CMM (0.8-4.8); LYMPHOCYTES % (AUTO) 6.1 % (20.0-44.0); MEAN CORPUSCULAR HGB CONC 34 g/dl (31.0-36.0); MEAN CORPUSCULAR VOLUME 102 fL (80-96); MONOCYTES # (AUTO) 0.8 /CMM (0.1-1.30); MONOCYTES % (AUTO) 3.8 % (2.0-12.0); NEUTROPHILS # (AUTO) 19.5 /CMM (1.8-8.9); NEUTROPHILS % (AUTO) 89.8 % (43.0-81.0); PLATELET COUNT (AUTO) 127 /CMM (150-450); RED BLOOD CELL COUNT(AUTO) 2.78 MIL/uL (4.5-6.0); WHITE BLOOD COUNT (AUTO) 21.7 K/uL (4.3-11.0)
[2020-11-13 04:57] LABS: BILIRUBIN,TOTAL 2.4 mg/dL (0.2-1.0); CALCIUM, SERUM 6.9 mg/dL (8.5-10.1); CREATININE 5.5 mg/dL (0.6-1.3); POTASSIUM 4.4 mmol/L (3.5-5.1)
[2020-11-13 04:58] LABS: TOTAL PROTEIN, SERUM 5.4 g/dL (6.4-8.2)
[2020-11-13] MEDS: METRONIDAZOLE 500MG/ NS 100ML 500 MG in PREMIX 1 EA IV SCH ×3 (06:00→17:17)
--- NOTE | 2020-11-13 06:00 | NUR ---
VENT SETTINGS CHANGED TO SIMV 4, PS 15 [address] PEEP [address] REA HORN. YANIRA PEGUERO NOTIFIED. NO RESPIRATORY DISTRESS NOTED AT THIS TIME.
[2020-11-13 06:02] LABS: ALBUMIN 1.2 g/dL (3.4-5.0); PHOSPHORUS 8.4 mg/dL (2.5-4.9)
--- NOTE | 2020-11-13 06:19 | NUR ---
CREDENTIALING COORDINATOR NOTE: [id number]: Weaned pt off Diprivan drip per protocol. Tolerated well. Pt A&O, following commands. 600: Pt placed on SIMV mode by RT. Settings SIMV:4, PEEP:5, PSV: [address] Khoury's orders. Pt tolerated well. No resp distress noted at this time. ABG for 07, RT aware. Will continue to monitor.
--- NOTE | 2020-11-13 07:20 | NUR ---
RN OPENING NOTES RECEIVED PT AWAKE. SEDATION OFF. MECH VENT ON SIMV MODE. NO SOB OR ANY RESPIRATORY DISTRESS. SR ON TELE MONITOR. OGT IN PLACE. SANTACRUZ CATH IN PLACE. IV ACCESS INTACT, PATENT AND FLUSHED. RUNNING D5NS @75ML/HR, INFUSING WELL. SAFETY MEASURES IN PLACE. BED LOCKED AND IN LOWEST POSITION WITH SIDE RAILS UP X3. WILL CONTINUE TO MONITOR.
[2020-11-13] MEDS ORDERED: DC PROPOFOL WHEN EXTUBATED XX PRN (08:00)
[2020-11-13 08:05] LABS: ABG BASE EXCESS -0.3 mmol/L; ABG OXYGEN SATURATION 97.2 % (92.0-98.5); ABG PCO2 37.5 mmHg (35.0-45.0); ABG PH 7.422 (7.350-7.450); AaDO2 141.1 mmHg; COHb 0.3 % (0.5-1.5); MetHb 0.6 % (0.0-1.5); O2Hb 96.3 % (94.0-97.0); PEEP,BG 5 cm H2O; SITE, ABG Right Radial; VENT MODE, BG SIMV 40% PS15; VT, ABG 500 mL
[2020-11-13] MEDS: CEFTRIAXONE 2 G in IV D5W 100 ML IV SCH (08:26)
[2020-11-13] MEDS: PROSOURCE / PROSTAT (PYXIS) 30 ML UDC GT SCH ×2 (08:26→13:00)
[2020-11-13] MEDS: HYDROCORTISONE SOD SUCCINATE 100 MG/2 ML VIAL IV SCH ×2 (08:26→17:17)
[2020-11-13] MEDS ORDERED: ERYTHROMYCIN BASE OPHTH 3.5 GM TUBE EACHEYE SCH (09:00)
--- NOTE | 2020-11-13 09:17 | NUR ---
RT Received pt on SIMV mode. Patient extubated per MD orders post ABG. RN bedside during extubation. Placed pt on 4 LPM via nasal cannula. No SOB noted. Will continue to monitor
--- NOTE | 2020-11-13 09:37 | NUR ---
RN NOTES BROUGHT TO CT PER PROTOCOL. WENT BACK TO ROOM IN STABLE CONDITION. VS STABLE.
[2020-11-13] MEDS: IV D5/ 0.9% NACL 1,000 ML IV PRN (12:52)
[2020-11-13] MEDS: FUROSEMIDE 40 MG/4 ML VIAL IV SCH ×2 (14:09→17:17)
[2020-11-13] MEDS ORDERED: PHARMACY TO CHANGE GT/NG MEDS TO PO XX PRN (14:30)
[2020-11-13] MEDS: PANTOPRAZOLE 40 MG VIAL IV SCH (17:21)
[2020-11-13] MEDS ORDERED: CALCIUM ACETATE 667 MG TABLET PO SCH (18:00)
--- NOTE | 2020-11-13 18:32 | NUR ---
RN NOTES PATIENT WILL BE TRANSFERRED TO [facility], ROOM 1241-1. REPORT GIVEN TO SUE DOYLE. STILL AWAITS HYSTER MACHINE OPERATOR.
[2020-11-13] MEDS: Thiamine 100 MG in IV D5W 50 ML IV SCH (18:50)
[2020-11-13] MEDS: Folic acid 1 MG in IV D5W 50 ML IV SCH (18:51)
--- NOTE | 2020-11-13 19:25 | NUR ---
RN CLOSING NOTES PT IN STABLE CONDITION. AWAITS CHEMISTRY TEACHER. ENDORSE TO BIRDIE DOYLE FOR SETH.
--- NOTE | 2020-11-13 19:30 | NUR ---
RN NOTE RECEIVED PT ALERT. NO SIGNS OF RESP DISTRESS NOTED. ON 2 AT 4L. DENIES ANY SOB OR PAIN. SANTACRUZ IN PLACE. PICC LINE ON KHANG PATENT AND INTACT. AWAITING FOR TRANSFER. ALL SAFETY MEASURES IN PLACE, CALL LIGHT WITHIN REACH.BED LOCKED IN LOWEST POSITION.
--- NOTE | 2020-11-13 20:08 | NUR ---
RN NOTE PT TRANSFERRED TO [facility], PICKED UP BY 2 EMT [facility]. PT STABLE, NO SIGNS OF DISTRESS NOTED. BELONGINGS WERE PICKED UP BY , INCLUDING PHONE PER AM NURSE,
--- NOTE | 2020-11-13 20:09 | NUR ---
RN NOTE BP 140/90 R 24 T 98.4 P 86 O2 SAT AT 97%.
== END 2020-11-13 20:05 | disposition short-term general hospital (02) | DRG 870 ==
LOC: ER 12:56 → ICU 14:50
PROVIDERS: ADMIT Internal Medicine; ATTEND Internal Medicine
PROC: 5A1955Z Respiratory Ventilation, Greater than 96 Consecutive Hours (ICD-10-PCS; principal; 2020-11-07)
PROC: 30233K1 Transfusion of Nonautologous Frozen Plasma into Peripheral Vein, Percutaneous Approach (ICD-10-PCS; 2020-11-07)
PROC: 02HV33Z Insertion of Infusion Device into Superior Vena Cava, Percutaneous Approach (ICD-10-PCS; 2020-11-07)
PROC: 0F913ZZ Drainage of Right Lobe Liver, Percutaneous Approach (ICD-10-PCS; 2020-11-08)
PROC: 30233R1 Transfusion of Nonautologous Platelets into Peripheral Vein, Percutaneous Approach (ICD-10-PCS; 2020-11-09)
PROC: 0W993ZZ Drainage of Right Pleural Cavity, Percutaneous Approach (ICD-10-PCS; 2020-11-10)
PROC: 06HM33Z Insertion of Infusion Device into Right Femoral Vein, Percutaneous Approach (ICD-10-PCS; 2020-11-11)
PROC: B54BZZA Ultrasonography of Right Lower Extremity Veins, Guidance (ICD-10-PCS; 2020-11-11)
PROC: 5A1D70Z Performance of Urinary Filtration, Intermittent, Less than 6 Hours Per Day (ICD-10-PCS; 2020-11-11)
DX: A41.51 Sepsis due to Escherichia coli [E. coli] (principal); G92 Toxic encephalopathy; J96.00 Acute respiratory failure, unspecified whether with hypoxia or hypercapnia; K75.0 Abscess of liver; J85.1 Abscess of lung with pneumonia; R65.21 Severe sepsis with septic shock; N17.0 Acute kidney failure with tubular necrosis; E46 Unspecified protein-calorie malnutrition; E87.2 Acidosis; E87.1 Hypo-osmolality and hyponatremia; J91.8 Pleural effusion in other conditions classified elsewhere; D68.9 Coagulation defect, unspecified; K57.32 Diverticulitis of large intestine without perforation or abscess without bleeding; J90 Pleural effusion, not elsewhere classified; J98.11 Atelectasis; D62 Acute posthemorrhagic anemia; J45.909 Unspecified asthma, uncomplicated; E83.39 Other disorders of phosphorus metabolism; D64.9 Anemia, unspecified; Z20.822 Contact with and (suspected) exposure to COVID-19; F41.9 Anxiety disorder, unspecified; F10.20 Alcohol dependence, uncomplicated; Y90.9 Presence of alcohol in blood, level not specified; K70.10 Alcoholic hepatitis without ascites; K74.60 Unspecified cirrhosis of liver; K76.0 Fatty (change of) liver, not elsewhere classified; E83.51 Hypocalcemia; E16.2 Hypoglycemia, unspecified; K44.9 Diaphragmatic hernia without obstruction or gangrene; K40.90 Unilateral inguinal hernia, without obstruction or gangrene, not specified as recurrent; D69.6 Thrombocytopenia, unspecified
CPT/HCPCS: 31720; 36415; 36600; 70450-TC; 71045-TC; 71250-TC; 75989-TC; 76705-TC; 80048-TC; 80053-TC; 80076-TC; 80202-TC; 81001; 82010-TC; 82140-TC; 82330; 82533; 82803-TC; 82962-TC; 83605-TC; 83735-TC; 84100-TC; 84300-TC; 84443-TC; 84478-TC; 84484-TC; 84550-TC; 85025-TC; 85610-TC; 85730-TC; 86850-TC; 87040-TC; 87070-TC; 87081-TC; 87086-TC; 87186-TC; 89051-TC; 90935-TC; 94002-TC; 94003-TC; 94760-TC; 94799-TC; 99082-TC; A4215; A4216; A4217; C1769; C9113; G0378; G0480; J0610; J0696; J1720; J1815; J1940; J2370; J2543; J3370; J3411; J3430; J3490; J7030; J7040; J7042; J7050; J7060; P9017; P9034; P9047; U0003